=== PATIENT | female | born 1975 | race American Indian/Alaskan Native ===

== ENCOUNTER 2019-04-24 17:42 | Emergency (ER) | payer MEDICAID, SELFPAY ==
--- NOTE | 2019-04-24 18:07 | PC.NURSE ---
called for patient to triage no answer
[2019-04-24 18:46] VITALS: BP 134/74; PULSE 91; RESP 16; TEMP 36.4; O2SAT 100; BMI 23.0
--- NOTE | 2019-04-24 18:56 | DI.RAD.S_ITS ---
PROCEDURE: XR RIBS LT MIN 3V W CXR1V INDICATIONS: fall rib pain TECHNIQUE: 2 views of the left ribs were acquired, along with a single view chest. COMPARISON: None. FINDINGS: Surgical changes and devices: Surgical clips in the gallbladder fossa. Left breast biopsy clip. Bones and chest wall: Mildly displaced left lateral sixth and seventh rib fractures. No suspicious bony lesions. Overlying soft tissues appear unremarkable. Lungs and pleura: No pleural effusions or pneumothorax. Lungs appear clear. Mediastinum: Mediastinal contours appear normal. Heart size is normal. IMPRESSION: 1. Mildly displaced left sixth and seventh lateral rib fractures. 2. No evidence of underlying chest trauma. Dictated by: Nyasia Anders M.D. on 04/24/2019 at 20:05 Approved by: Nyasia Anders M.D. on 04/24/2019 at 20:08
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
[2019-04-24] MEDS: HYDROCODONE/ACET 5/325 PREPACK 1 BOTTLE MISC (20:36)
[2019-04-24] MEDS: KETOROLAC 60 MG/2 ML VIAL 30 MG IM (20:36)
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
[2019-04-24 21:00] VITALS: BP 121/80; PULSE 92; RESP 18; O2SAT 98
== END 2019-04-24 21:03 | disposition home or self-care (01) ==
PROVIDERS: Emergency Provider Nurse Practitioner
DX: S22.42XA Multiple fractures of ribs, left side, initial encounter for closed fracture (principal); W18.30XA Fall on same level, unspecified, initial encounter
CPT/HCPCS: 71101; 96372; 99282; 99283; J1885

== ENCOUNTER 2019-08-16 13:24 | Emergency (ER) | payer MEDICAID, SELFPAY ==
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
[2019-08-16 13:40] VITALS: BP 124/74; PULSE 92; RESP 16; TEMP 36.6; O2SAT 98; BMI 21.2
--- NOTE | 2019-08-16 13:47 | PC.NURSE ---
Patient requests a shower. Informed her that as long as she cooperates we can do so. After that pt cooperates and answers questions. Helped pt to shower and provided her with supplies and clothing.
[2019-08-16 18:29] VITALS: BP 114/74; PULSE 88; RESP 15; O2SAT 99
[2019-08-16] MEDS: ONDANSETRON 4 MG ODT PO (18:34)
[2019-08-17 01:28] VITALS: BP 118/71; PULSE 80; RESP 18; O2SAT 97
[2019-08-17 07:32] VITALS: BP 127/67; PULSE 97; RESP 12; O2SAT 97
[2019-08-17] MEDS: ACETAMINOPHEN 325 MG TABLET 650 MG PO (08:27)
== END 2019-08-17 08:30 | disposition home or self-care (01) ==
PROVIDERS: Emergency Provider Emergency Medicine
DX: F10.929 Alcohol use, unspecified with intoxication, unspecified (principal)
CPT/HCPCS: 99283

== ENCOUNTER 2020-08-01 18:37 | Emergency (ER) | payer MEDICAID, SELFPAY ==
[2020-08-01 18:42] VITALS: BP 141/71; PULSE 95; RESP 14; TEMP 36.2; O2SAT 97; BMI 23.0
--- NOTE | 2020-08-01 18:49 | DI.RAD.S_ITS ---
PROCEDURE: XR HAND RT MIN 3V INDICATIONS: hand injury yesterdaY TECHNIQUE: 3 views of the hand(s) acquired. COMPARISON: None. FINDINGS: Bones: Mildly displaced and angulated comminuted fracture of the proximal aspect of the proximal phalanx of the 3rd digit. There is a possible underlying lucent focus within the proximal phalanx measuring 12 mm. Soft tissues: No suspicious soft tissue calcifications. IMPRESSION: 1. 3rd digit fracture, possibly pathological. Dictated by: Sam Parra M.D. on 08/01/2020 at 19:03 Approved by: Sam Parra M.D. on 08/01/2020 at 19:04
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
[2020-08-01] MEDS: LIDO 1%/SOD BICARB 8.4% (10ML) 10 ML SYRINGE INJ (19:40)
[2020-08-01 20:28] VITALS: BP 120/81; PULSE 82; RESP 12; O2SAT 96
== END 2020-08-01 20:30 | disposition home or self-care (01) ==
PROVIDERS: Emergency Provider Emergency Medicine
DX: S62.602A Fracture of unspecified phalanx of right middle finger, initial encounter for closed fracture (principal); W19.XXXA Unspecified fall, initial encounter
CPT/HCPCS: 26725; 29130; 64450; 73130; 99281; 99284

== ENCOUNTER 2020-08-29 08:58 | Day surgery (SDC) | payer MEDICAID, SELFPAY ==
[2020-08-29] VITALS (8 sets, daily range): BP systolic 101–124; BP diastolic 66–77; PULSE 76–110; RESP 12–18; TEMP 36.3–37.3; O2SAT 97–100; BMI 23.5
--- NOTE | 2020-08-29 | PATH_ITS ---
[facility] Accession Number: [id number] . 01 Material submitted: . finger - RIGHT MIDDLE FINGER PROXIMAL PHALANX BONY TUMOR . 01 Clinical history: . RIGHT MIDDLE FINGER EXCISION . 01 Diagnosis: Right Middle Finger Proximal Phalanx, Excision: Benign chondro-osseous lesion with degenerative changes and reactive fibrosis; see comment. MRV 09/05/2020 1322 Local . 01 Comment: The clinical note is reviewed. Sections demonstrate histoloic features compatible with reactive changes/exostosis/benign osteochondromatous proliferation. 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 Significant cytologic atypia or infiltration into bony trabecula is not identified. Correlation with clinical and radiographic features is recommended. . This case has been reviewed by Dr. Shannan Delgado. . 01 Electronically signed: . Charlie Mckenzie MD, Dermatopathologist NPI- [id number] . 01 Gross description: . RIGHT MIDDLE FINGER PROXIMAL PHALANX BONY TUMOR: Received in formalin are multiple fragment(s) of lucas, hard tissue measuring 2.7 x 2.4 x 0.6 cm in aggregate submitted entirely in 1 cassette(s) /QBJ 08/31/2020 0956 Local . 01 Pathologist provided ICD-10: M89.8X4 . 01 CPT . [id number] Performed at: [address] [facility], [place], [place] [id number] MD Thang Delatorre MD Phone: [phone]
[2020-08-29] MEDS: LACTATED RINGERS 1,000 ML 42 ML IV (10:09)
[2020-08-29] MEDS: CEFAZOLIN 2 GM/100 ML FROZ.PIGGY IV (10:12)
[2020-08-29] MEDS: BUPIVACAINE 0.5% W/ EPI (PF) 30 ML VIAL INJ (10:58)
--- NOTE | 2020-08-29 12:06 | P.OP_ITS ---
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 No sign of any intra-articular extension. With some erosion of the cortex to the proximal aspect of the proximal phalanx. Closure Type: primary Specimen(s): other (Bony tumor from proximal phalanx sent for pathology) Estimated Blood Loss (mL): 10 Blood products transfused: none Tourniquet time (min): 80 Procedure in detail: On date of service, patient was met in the holding area where his operative site was signed and witnessed by the OR staff. The surgeries once again discussed with the patient in remaining questions or concerns he had were answered fully. Patient was taken back to the operating theater placed on the operating table in a supine position. Great care was taken to ensure that all bony prominences were appropriately padded. Well- padded tourniquet was placed up along the upper extremity. Time-out was performed verifying patient's name, procedure, and operative site. The upper extremity was prepped and draped in the normal sterile fashion. Esmarch was used to exsanguinate the limb the tourniquet was turned up to 250 mm of mercury. Fifteen blade was used to incise through skin and fascial tissue centered over the 3rd proximal phalanx. Deep knife was used to continue the sharp dissection until the proximal phalanx as well as the distal aspect of the metacarpal was visualized. The extensor tendon was split midline. Once we had good visualization of the fracture, curette was used to debride out to the bony cyst. The material removed was sent to pathology. Correct was used to remove all that material leaving a hollow shell with a bony cyst was. Extended a little bit distally until we reached normal marrow tissue. C-arm was used to verify the extent of our excision of the bony mass. The dorsal cortex was definitely very thin over the area of the bony cyst/tumor. Once we felt we removed all of the bony tumor than this area was copiously irrigated. Then next, this area was then packed with bone graft filling up the empty shell where the tumor used to be. Once this area was completely filled with bone graft we then turned our attention to the fixation. This plate was placed spanning the area over the cyst. Initially a screw was placed most distally and most proxi harish. C-arm was used to verify positioning as well as screw length. Once we were satisfied with this the remaining holes were drilled and screws were placed providing good fixation distally to the cystic area. Good fixation with 1 screw hole proximally to the cystic area due to how close the cyst was to the articular surface. C-arm was brought in again to verify reduction as well as plate positioning and screw lengths. Final x-rays were obtained. Wound was copiously irrigated and then closed in layered fashion. The hand was then cleaned, dried, and dressed. Patient was placed into a splint and taken to the PACU in stable condition. Complications: none Post-operative Condition: stable Disposition: PACU Plan for aftercare: Patient's finger be immobilized for the next few days. Hand therapy can then make her a removable brace that she can take off and work on range of motion exercises.
[2020-08-29] MEDS: OXYCODONE/ACETAMINOPHEN 5/325 TABLET 1 TAB PO (12:27)
== END 2020-08-29 13:07 | disposition home or self-care (01) ==
PROVIDERS: Referring Provider Orthopaedic Surgery; Visit Provider Orthopaedic Surgery
PROC: (CPT 26746; principal; 2020-08-29 10:15)
DX: M84.444A Pathological fracture, right finger(s), initial encounter for fracture (principal); F17.210 Nicotine dependence, cigarettes, uncomplicated; W03.XXXA Other fall on same level due to collision with another person, initial encounter; M89.8X4 Other specified disorders of bone, hand
CPT/HCPCS: 26746; 26260; 81025; J0690; J1100; J1885; J2250; J2405; J2704; J3010

== ENCOUNTER → 2021-09-26 19:43 | Outpatient (CLI) | payer MEDICAID, SELFPAY ==
--- NOTE | 2021-09-26 20:19 | DI.RAD.S_ITS ---
PROCEDURE: XR FOOT RT MIN 3V INDICATIONS: metatarsalgia, right foot TECHNIQUE: 3 views of the foot were acquired. COMPARISON: None. FINDINGS: Bones: No acute fractures or dislocations. Mild degenerative changes of the right 1st metatarsophalangeal joint with suspected hallux valgus angulation and bunion formation. However, there appears to be small subchondral lucencies involving the head of the 1st metatarsal and base of the 1st toe proximal phalanx. Findings may represent an inflammatory arthropathy such as gout. No suspicious bony lesions. Postsurgical changes of the medial malleolus. No evidence for hardware complication. Soft tissues: No tibiotalar joint effusion. Achilles tendon appears normal. IMPRESSION: 1. Right foot without acute fracture or dislocation. 2. Degenerative changes of the right 1st metatarsophalangeal joint. There is overlying soft tissue prominence which may represent bunion formation as there is suspected mild hallux angulation of the great toe. However, there are small subchondral lucencies involving the base of the right 1st toe proximal phalanx as well as the head of the 1st metatarsal. These findings in combination with soft tissue prominence may represent an inflammatory arthropathy such as gout. Recommend clinical correlation. Dictated by: Ruben Simmons M.D. on 09/27/2021 at 0:42 Approved by: Ruben Simmons M.D. on 09/27/2021 at 0:46
== END ==
PROVIDERS: PCP Family Medicine; Referring Provider Family Medicine; Visit Provider Family Medicine
DX: M77.41 Metatarsalgia, right foot (principal)
CPT/HCPCS: 73630

== ENCOUNTER 2022-03-08 00:31 | Emergency (ER) | payer OTHER, MEDICAID, SELFPAY ==
[2022-03-08 00:40] VITALS: BP 149/66; PULSE 86; RESP 18; TEMP 36.8; O2SAT 98; BMI 23.1
[2022-03-08] MEDS: TET,DIPH,PERTUSS(ACELL),VAC/PF 0.5 ML SYRINGE IM (01:10)
== END 2022-03-08 01:25 | disposition left against medical advice (07) ==
PROVIDERS: Emergency Provider Emergency Medicine; PCP Nurse Practitioner Family
DX: T22.00XA Burn of unspecified degree of shoulder and upper limb, except wrist and hand, unspecified site, initial encounter (principal); Z23 Encounter for immunization
CPT/HCPCS: 90471; 99283; 90715

== ENCOUNTER 2022-10-18 00:09 | Emergency (ER) | payer OTHER, MEDICAID, SELFPAY ==
[2022-10-18] VITALS (10 sets, daily range): BP systolic 120–159; BP diastolic 63–98; PULSE 80–108; RESP 11–50; TEMP 36.6; O2SAT 96–99; BMI 23.0
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
--- NOTE | 2022-10-18 00:14 | DI.RAD.S_ITS ---
PROCEDURE: XR ELBOW LT MIN 3V INDICATIONS: pain, swelling, ecchymosis TECHNIQUE: 3 views of the elbow were acquired. COMPARISON: None. FINDINGS: Bones: No fractures or dislocations. No suspicious bony lesions. Soft tissues: No elbow joint effusion. No suspicious soft tissue calcifications. IMPRESSION: No trauma found. Dictated by: Jesus Curtis M.D. on 10/18/2022 at 1:38 Approved by: Jesus Curtis M.D. on 10/18/2022 at 1:38
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
[2022-10-18] MEDS: TET,DIPH,PERTUSS(ACELL),VAC/PF 0.5 ML SYRINGE IM (00:23)
[2022-10-18] MEDS: SODIUM CHLORIDE 0.9% 1,000 ML 1000 ML IV (00:24)
[2022-10-18 00:30] LABS: Alanine Aminotransferase 13 IU/L (<35); Albumin 4.3 g/dL (3.5-5.0); Albumin Globulin Ratio 1.7 (1.0-2.8); Alkaline Phosphatase 73 U/L (38-126); Aspartate Aminotransferase 49 IU/L (14-36); Bilirubin Total 0.2 mg/dL (0.2-1.3); Blood Urea Nitrogen 12 mg/dL (7-17); Calcium 8.5 mg/dL (8.4-10.2); Carbon Dioxide 25 mmol/L (22-32); Chloride 105 mmol/L (98-107); Estimated Glomerular Filt Rate > 60 mL/min (>60); Globulin 2.5 g/dL (1.7-4.1); Glucose 101 mg/dL (70-100); HEMOLYSIS < 15 (0-50); Lipase 302 U/L (23-300); Magnesium 2.1 mg/dL (1.6-2.3); Potassium 4.5 mmol/L (3.4-5.1); Sodium 140 mmol/L (137-145); Total Protein 6.8 g/dL (6.3-8.2)
[2022-10-18 00:40] LABS: Add Manual Diff / Slide Review NO; Basophils Absolute Auto 100 /uL (0-100); Basophils Percent Auto 0.8 % (0-2); Eosinophils Absolute Auto 100 /uL (0-450); Eosinophils Percent Auto 1.6 % (2-4); Hematocrit 38.8 % (36-46); Hemoglobin 13.1 g/dL (12.0-16.0); Lymphocytes Absolute Auto 1600 /uL (1100-4500); Lymphocytes Percent Auto 23.7 % (25-40); Mean Corpuscular HGB Conc 33.6 % (30-36); Mean Corpuscular Hemoglobin 32.7 PG (26-34); Mean Corpuscular Volume 97.4 fL (80-100); Monocytes Absolute Auto 500 /uL (0-900); Monocytes Percent Auto 6.9 % (3-14); Neutrophils Absolute Auto 4600 /uL (1500-7000); Platelet Count 351 X10^3/uL (150-400); Red Blood Cell Count 3.99 X10^6/uL (4.0-5.2); Red Cell Distribution Width 13.3 % (11.6-14.8); White Blood Cell Count 6.9 X10^3/uL (4.5-11.0)
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
[2022-10-18 01:51] LABS: Ethanol (ETOH) 228 mg/dL
[2022-10-18] MEDS: ACETAMINOPHEN 325 MG TABLET 650 MG PO (02:27)
--- NOTE | 2022-10-18 02:28 | PC.NURSE ---
removed C-collar after C-spine cleared. Patient cleared for discharge but does not have available housing or ride in area. Patient ambulatory down hallway to bathroom, then moved to room 12 to allow to rest while awaiting later time to pursue ride home. Patient no longer on residential monitor, she is drinking fluids and given a snack.
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
== END 2022-10-18 10:00 | disposition home or self-care (01) ==
PROVIDERS: Emergency Provider Emergency Medicine; PCP Nurse Practitioner Family
DX: S00.03XA Contusion of scalp, initial encounter (principal); S53.402A Unspecified sprain of left elbow, initial encounter; Y04.2XXA Assault by strike against or bumped into by another person, initial encounter; Z23 Encounter for immunization
CPT/HCPCS: 70450; 70486; 71045; 72125; 72170; 73080; 80053; 80320; 83690; 83735; 85025; 90471; 96360; 99284; 90715

== ENCOUNTER 2023-01-29 20:01 | Emergency (ER) | payer OTHER, MEDICAID, SELFPAY ==
--- NOTE | 2023-01-29 20:07 | DI.CT.S_ITS ---
PROCEDURE: CT HEAD/BRAIN WO CON INDICATIONS: fall with head injury TECHNIQUE: Noncontrast 4.5 mm thick angled axial sections acquired from the foramen magnum to the vertex, with coronal and sagittal reformats. For radiation dose reduction, the following was used: automated exposure control, adjustment of mA and/or kV according to patient size. COMPARISON: [facility], CT, CT HEAD/BRAIN WO CON, 10/18/2022, 0:28. FINDINGS: Image quality: Excellent. CSF spaces: Basal cisterns are patent. No extra-axial fluid collections. Ventricles are normal in size and shape. Brain: No intracranial hemorrhage, mass, or mass effect. Garland-white matter interface appears preserved. Skull and face: Calvarium and visualized facial bones are intact, without suspicious lesions. Sinuses: Visualized sinuses and mastoids are clear. IMPRESSION: 1. No acute intracranial abnormality. Dictated by: Thang Kulkarni M.D. on 01/29/2023 at 21:14 Approved by: Thang Kulkarni M.D. on 01/29/2023 at 21:15
--- NOTE | 2023-01-29 20:07 | DI.CT.S_ITS ---
P the ROCEDURE: CT CERVICAL SPINE WO CON INDICATIONS: fall with head injury TECHNIQUE: Noncontrast 3 mm thick sections acquired from the skull base to the T4 level. Sagittal and coronal reformats were then constructed. For radiation dose reduction, the following was used: automated exposure control, adjustment of mA and/or kV according to patient size. COMPARISON: [facility], CT, CT CERVICAL SPINE WO CON, 10/18/2022, 0:28. FINDINGS: Image quality: Excellent. Bones: No fractures or subluxation. There is straightening of the cervical lordosis. Visualized superior ribs are intact. Soft tissues: Prevertebral soft tissues are normal in thickness. No paravertebral hematomas. No apical pneumothoraces. IMPRESSION: 1. No fracture or subluxation. Dictated by: Thang Kulkarni M.D. on 01/29/2023 at 21:13 Approved by: Thang Kulkarni M.D. on 01/29/2023 at 21:14
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
[2023-01-29 20:11] VITALS: BP 112/73; PULSE 110; RESP 18; TEMP 36.6; O2SAT 99; BMI 23.0
[2023-01-29 20:25] VITALS: BP 118/74; PULSE 104; RESP 18; O2SAT 98
[2023-01-29] MEDS: TET,DIPH,PERTUSS(ACELL),VAC/PF 0.5 ML SYRINGE IM (20:31)
[2023-01-29 20:42] VITALS: BP 117/74; PULSE 102; RESP 18; O2SAT 100
--- NOTE | 2023-01-29 21:01 | PC.NURSE ---
Pt alert, oriented x 4. Became verbally abusive to staff stating LET ME OUT I'm NOT waiting here all fucking night. Instructed to return to room, verbally reassured.
--- NOTE | 2023-01-29 21:03 | PC.NURSE ---
She is alert and oriented to time,place,day and person and situation.she is verbally abusive,swearing and refuses bronwyn let me take her vital signs.Her speech is clear and her gait is steady.She removed her hard c collar that I placed on arrival here.
--- NOTE | 2023-01-29 21:09 | PC.NURSE ---
She refused to let me come into her room,I notified DERIAN Oconnor and transmitter engineer in charge Kate.
--- NOTE | 2023-01-29 21:41 | PC.NURSE ---
Pt requesting ferry pass back. Told that we are unable to give ferry pass as she has no indication for such. Pt states that I am not believable and I am the worst.
[2023-01-29] MEDS: KETOROLAC 30 MG/ML VIAL 15 MG IV (21:45)
== END 2023-01-29 22:02 | disposition home or self-care (01) ==
PROVIDERS: Emergency Provider Emergency Medicine; PCP Nurse Practitioner Family
DX: S01.01XA Laceration without foreign body of scalp, initial encounter (principal); W17.89XA Other fall from one level to another, initial encounter; Z23 Encounter for immunization
CPT/HCPCS: 12001; 70450; 72125; 90471; 96374; 99284; 99285; 90715; J1885

== ENCOUNTER 2023-02-20 19:43 | Emergency (ER) | payer OTHER, MEDICAID, SELFPAY ==
[2023-02-20 19:46] VITALS: BP 120/60; PULSE 97; RESP 20; TEMP 36.4; O2SAT 98; BMI 23.0
--- NOTE | 2023-02-20 19:54 | PC.NURSE ---
Patient declined to answer any further questions on the suicide risk score stating i don't think you guys are going to do anything else for me besides get these sheri out so stop asking questions.
--- NOTE | 2023-02-20 20:28 | PC.NURSE ---
Per provider, okay'd to removal sheri. Removed 2 sheri without difficulty. Incision well healed, no s/sx of infection present. Patient requested to keep sheri, educated patient that they are sharps and need to be disposed of properly. Patient acknowledged.
--- NOTE | 2023-02-20 20:29 | ED.RECABL ---
HPI - Recheck/Abnormal Lab/Rx General Chief Complaint: Recheck/Abnormal Lab/Rx Stated Complaint: Abdelrahman in head, Need removed Time Seen by Provider: 02/20/23 20:26 Source: patient Mode of arrival: Ambulatory History of Present Illness HPI narrative: 47-year-old female here to have abdelrahman removed from scalp. Related Data Previous Rx's Medication Instructions Recorded oxycodone-acetaminophen 5 mg-325 2 tab PO Q4-6H PRN pain #60 tabs 08/29/ mg tablet (Percocet) cyclobenzaprine 10 mg tablet 10 mg PO TID PRN muscle spasm #10 10/18/22 tabs hydrocodone 5 mg-acetaminophen 325 1 tab PO Q6H PRN pain #10 tabs 10/18/22 mg tablet ondansetron 4 mg disintegrating 4 mg PO Q6HR PRN nausea and 10/18/22 tablet vomiting #10 tabs Allergies Allergy/AdvReac Type Severity Reaction Status Date / Time No Known Drug Allergies Allergy Verified 03/08/22 00:39 Review of Systems Integumentary/Breasts Skin/Breast: Reports system reviewed and no additional complaints, except as documented Patient History Medical History Depression HX: benign breast biopsy No significant medical problems Surgical History Previous section S/P cholecystectomy Social History household members: friend(s) Smoking Status: Current every day smoker Smoking Status: Current every day smoker tobacco type: vaping alcohol intake frequency: a few times a week Substance Use Type: marijuana Exam Initial Vital Signs Initial Vital Signs: Vital Signs Temperature 97.5 F L 02/20/23 19:46 Pulse Rate 97 H 02/20/23 19:46 Respiratory Rate 20 02/20/23 19:46 Blood Pressure 120/60 02/20/23 19:46 Pulse Oximetry 98 02/20/23 19:46 Oxygen Delivery Method Room Air 02/20/23 19:46 HENTN HENTN Other: Head wound appears well. No signs of infection Skin Other: Scalp wound appears well. No signs of infection Course Vital Signs Vital signs: Vital Signs - 8 hr 02/20/23 19:46 Temperature 97.5 F L Pulse Rate 97 H Respiratory Rate 20 Blood Pressure 120/60 Pulse Oximetry 98 Oxygen Delivery Method Room Air MDM - Recheck/Abnormal Lab/Rx MDM Narrative Medical decision making narrative: Abdelrahman were removed without issue. There are no signs of infection. Patient was given care instructions and return precautions. She expressed understanding and agreement. Discharge Plan Departure Patient Disposition: Home Clinical Impression: Encounter for staple removal Activity Restrictions/Additional Instructions: I do recommend that you were careful with brushing your hair for the next couple days however this should improve very quickly. Follow-up with your primary doctor as needed. Prescriptions: No Action oxycodone-acetaminophen [Percocet] 5-325 mg tablet 2 tab PO Q4-6H PRN (Reason: pain) Qty: 60 0RF cyclobenzaprine 10 mg tablet 10 mg PO TID PRN (Reason: muscle spasm) Qty: 10 0RF hydrocodone-acetaminophen 5-325 mg tablet 1 tab PO Q6H PRN (Reason: pain) Qty: 10 0RF ondansetron 4 mg tablet,disintegrating 4 mg PO Q6HR PRN (Reason: nausea and vomiting) Qty: 10 0RF Referrals: Shana Vences ARNP [Primary Care Provider] - Stand Alone Forms: Patient Portal/API
== END 2023-02-20 20:31 | disposition home or self-care (01) ==
PROVIDERS: Emergency Provider Emergency Medicine; PCP Nurse Practitioner Family
DX: Z48.02 Encounter for removal of sutures (principal)
CPT/HCPCS: 99281

== ENCOUNTER 2023-04-07 12:06 | Emergency (ER) | payer OTHER, MEDICAID, SELFPAY ==
[2023-04-07 12:09] VITALS: BP 138/74; PULSE 90; RESP 20; TEMP 36.8; O2SAT 100; BMI 23.0
--- NOTE | 2023-04-07 12:40 | DI.RAD.S_ITS ---
PROCEDURE: XR FINGER LT MIN 2V INDICATIONS: pain after swelling/ring removal TECHNIQUE: AP hand, 2 views of the 4th finger(s) acquired. COMPARISON: None. FINDINGS: Bones: No fractures or dislocations. No suspicious bony lesions. Soft tissues: No suspicious soft tissue calcifications. IMPRESSION: No visualized acute fracture or dislocation. However, if clinical concern and/or pain persist, short interval imaging followup in 7-10 days is recommended, as occult injury cannot be definitively excluded. Dictated by: Ammy Michaels M.D. on 04/07/2023 at 13:16 Approved by: Ammy Michaels M.D. on 04/07/2023 at 13:17
--- NOTE | 2023-04-07 12:43 | PC.NURSE ---
This RN used ring cutter to remove two rings from pt's L 4th finger. Skin is intact and finger is swollen distal to where the rings were. Pt tolerated procedure well.
[2023-04-07] MEDS: ACETAMINOPHEN 325 MG TABLET 650 MG PO (13:00)
[2023-04-07] MEDS: IBUPROFEN 400 MG TABLET 800 MG PO (13:00)
[2023-04-07 13:04] VITALS: PULSE 78
--- NOTE | 2023-04-07 13:27 | ED.EXTPRO ---
HPI - Extremity Problem <Marialuisa Moulton PA-C - Last Filed: 04/07/23 13:32> General Chief complaint: Extremity Injury, Upper Stated complaint: finger onleft hand swelling/ rings stuck painfull Time Seen by Provider: 04/07/23 12:36 Source: patient Mode of arrival: Ambulatory History of Present Illness HPI Narrative: Patient is a 48-year-old female who presents with swelling of her left 4th finger. Her rings are stuck. She did not injure the finger but was carrying some heavy luggage and thinks the finger got swollen. When she tried to remove the rings, she was not able to. She tried using soap and lotion to get the rings off but they would not come off; her friend tried pulling on them which caused further swelling and pain around the PIP joint. Related Data Previous Rx's Medication Instructions Recorded oxycodone-acetaminophen 5 mg-325 2 tab PO Q4-6H PRN pain #60 tabs /18/ mg tablet (Percocet) cyclobenzaprine 10 mg tablet 10 mg PO TID PRN muscle spasm #10 10/18/22 tabs hydrocodone 5 mg-acetaminophen 325 1 tab PO Q6H PRN pain #10 tabs 10/18/22 mg tablet ondansetron 4 mg disintegrating 4 mg PO Q6HR PRN nausea and 10/18/22 tablet vomiting #10 tabs Allergies Allergy/AdvReac Type Severity Reaction Status Date / Time No Known Drug Allergies Allergy Verified 04/07/23 12:42 Review of Systems <Marialuisa Moulton PA-C - Last Filed: 04/07/23 13:32> Review of Systems ROS Unobtainable: All systems reviewed & are unremarkable except as noted in HPI and below Patient History <Marialuisa Moulton PA-C - Last Filed: 04/07/23 13:32> Medical History HX: benign breast biopsy Depression No significant medical problems Surgical History Previous section S/P cholecystectomy Social History household members: friend(s) Smoking Status: Current every day smoker Smoking Status: Current every day smoker tobacco type: vaping alcohol intake frequency: a few times a week Substance Use Type: marijuana Exam <Marialuisa Moulton PA-C - Last Filed: 04/07/23 13:32> Narrative Exam Narrative: GENERAL: 48 year old patient appears stated age. Well-developed patient, in no distress. NEURO: AOx3. HEAD: Atraumatic. Normocephalic. EYES: Pupils equal round and reactive. Extraocular motions intact. No scleral icterus. No injection or drainage. ENT: Nose without bleeding or purulent drainage. Airway patent. RESPIRATORY: No distress. EXTREMITIES: Mild edema of the left 4th DIP joint with tenderness to palpation, mildly decreased range of motion due to swelling and pain. SKIN: Macerated skin under the rings Initial Vital Signs Initial Vital Signs: Vital Signs Temperature 98.3 F 04/07/23 12:09 Pulse Rate 90 04/07/23 12:09 Respiratory Rate 20 04/07/23 12:09 Blood Pressure 138/74 04/07/23 12:09 Pulse Oximetry 100 04/07/23 12:09 Oxygen Delivery Method Room Air 04/07/23 12:09 <Herminia Rose MD - Last Filed: 04/07/23 19:16> Initial Vital Signs Initial Vital Signs: Vital Signs Temperature 98.3 F 04/07/23 12:09 Pulse Rate 90 04/07/23 12:09 Respiratory Rate 20 04/07/23 12:09 Blood Pressure 138/74 04/07/23 12:09 Pulse Oximetry 100 04/07/23 12:09 Oxygen Delivery Method Room Air 04/07/23 12:09 Course <Marialuisa Moulton PA-C - Last Filed: 04/07/23 13:32> Orders Ordered: ED Orders 04/07/23 12:40 XR finger LT min 2V Stat Discontinued Medications Acetaminophen (Acetaminophen 325 Mg Tablet) 650 mg PO NOW ONE Stop: 04/07/23 12:40 Last Admin: 04/07/23 13:00 Dose: 650 mg Documented By: SAMANTHA Ibuprofen (Ibuprofen 400 Mg Tablet) 800 mg PO NOW ONE Stop: 04/07/23 12:40 Last Admin: 04/07/23 13:00 Dose: 800 mg Documented By: SAMANTHA Vital Signs Vital signs: Vital Signs - 8 hr 04/07/23 12:09 04/07/23 13:04 Temperature 98.3 F Pulse Rate 90 Pulse Rate [Left Radial] 78 Respiratory Rate 20 Blood Pressure 138/74 Pulse Oximetry 100 Oxygen Delivery Method Room Air <Herminia Rose MD - Last Filed: 04/07/23 19:16> Orders Ordered: ED Orders 04/07/23 12:40 XR finger LT min 2V Stat Discontinued Medications Acetaminophen (Acetaminophen 325 Mg Tablet) 650 mg PO NOW ONE Stop: 04/07/23 12:40 Last Admin: 04/07/23 13:00 Dose: 650 mg Documented By: SAMANTHA Ibuprofen (Ibuprofen 400 Mg Tablet) 800 mg PO NOW ONE Stop: 04/07/23 12:40 Last Admin: 04/07/23 13:00 Dose: 800 mg Documented By: SAMANTHA Vital Signs Vital signs: Vital Signs - 8 hr 04/07/23 12:09 04/07/23 13:04 Temperature 98.3 F Pulse Rate 90 Pulse Rate [Left Radial] 78 Respiratory Rate 20 Blood Pressure 138/74 Pulse Oximetry 100 Oxygen Delivery Method Room Air MDM - Extremity (Nontraumatic) <Marialuisa Moulton PA-C - Last Filed: 04/07/23 13:32> Imaging Data Extremity x-ray #1: Radiologist's Impression: PROCEDURE: XR FINGER LT MIN 2V INDICATIONS: pain after swelling/ring removal TECHNIQUE: AP hand, 2 views of the 4th finger(s) acquired. COMPARISON: None. FINDINGS: Bones: No fractures or dislocations. No suspicious bony lesions. Soft tissues: No suspicious soft tissue calcifications. IMPRESSION: No visualized acute fracture or dislocation. However, if clinical concern and/or pain persist, short interval imaging followup in 7-10 days is recommended, as occult injury cannot be definitively excluded. Dictated by: Ammy Michaels M.D. on 04/07/2023 at 13:16 Approved by: Ammy Michaels M.D. on 04/07/2023 at 13:17 MDM Narrative Medical decision making narrative: Multiple etiologies for patient's symptoms considered including, but not limited to: Fracture, dislocation, soft tissue injury Patient was significant pain over her PIP joint after attempting to remove her rings. Rings removed in the emergency room with macerated skin underlying them. There is no fracture or dislocation on x-ray. Suspect soft tissue swelling and pain secondary to the trauma of trying to remove the rings. Advised patient to continue using ice, ibuprofen and rest until her fingers are no longer swollen and no longer painful. Patient's symptoms improved over duration of stay with above-stated therapies. Findings and discharge diagnosis discussed with patient/family followed by verbalization of understanding Return precautions discussed with patient/family whom verbalize understanding of diagnosis and plan Discharge Plan Departure Patient Disposition: Home Clinical Impression: Injury of Hand Instructions: How To Perform RICE (Rest, Ice, Compress, Elevate) Activity Restrictions/Additional Instructions: *You have been diagnosed with soft tissue swelling of the left 4th finger. There is no fracture on x-ray. I would advise continuing to use ice, rest, ibuprofen until the swelling resolves and the pain goes away. *What to do: *Please continue to take your regular medications as directed. [ ] New medication prescriptions sent to your pharmacy: [ ] [ ] New medication written as a paper prescription [x] No new medications given *Please follow up with your primary care provider in 2-3 days, call for an appointment. Let them know you were seen in the Emergency Department and that we ask that you be seen in follow up. We will electronically transmit a record of today's note if your PCP is in our system *If you do not have a primary care provider please contact the [facility] Resource line at [phone]. They will ask some questions about your medical history and help get you set up with a doctor in the community. *Return to Emergency Department if you should have any new, worsening or concerning symptoms, such as [fever greater than 101 F, shaking chills, worsening pain, persistent vomiting or other concerning symptoms]. Prescriptions: No Action oxycodone-acetaminophen [Percocet] 5-325 mg tablet 2 tab PO Q4-6H PRN (Reason: pain) Qty: 60 0RF cyclobenzaprine 10 mg tablet 10 mg PO TID PRN (Reason: muscle spasm) Qty: 10 0RF hydrocodone-acetaminophen 5-325 mg tablet 1 tab PO Q6H PRN (Reason: pain) Qty: 10 0RF ondansetron 4 mg tablet,disintegrating 4 mg PO Q6HR PRN (Reason: nausea and vomiting) Qty: 10 0RF Referrals: Shana Vences ARNP [Primary Care Provider] - Stand Alone Forms: Patient Portal/API ED Sign-out <Herminia Rose MD - Last Filed: 04/07/23 19:16> Cosign ED Attending Cosignature Attestation: I did not see this patient. I was available all times for consultation.
== END 2023-04-07 13:53 | disposition home or self-care (01) ==
PROVIDERS: Emergency Provider Physician Assistant; PCP Nurse Practitioner Family
DX: S69.92XA Unspecified injury of left wrist, hand and finger(s), initial encounter (principal); X58.XXXA Exposure to other specified factors, initial encounter
CPT/HCPCS: 73140; 99283

== ENCOUNTER 2023-11-06 16:44 | Emergency (ER) | payer OTHER, MEDICAID, SELFPAY ==
[2023-11-06 16:48] VITALS: BP 119/70; PULSE 90; RESP 18; TEMP 36.6; O2SAT 99; BMI 24.7
--- NOTE | 2023-11-06 16:51 | DI.RAD.S_ITS ---
PROCEDURE: XR ANKLE RT MIN 3V INDICATIONS: pain after injury TECHNIQUE: 3 views of the ankle were acquired. COMPARISON: [facility], CR, XR FOOT 3 VIEWS WEIGHT BEARING RIGHT, 08/31/2023, 15:17. FINDINGS: Bones: No fractures or dislocations. Medial malleolar screw fixation without evidence of hardware complication. Ankle mortise is normally aligned. No suspicious bony lesions. Soft tissues: No tibiotalar joint effusion. Achilles tendon appears normal. IMPRESSION: No acute osseous abnormality. Medial malleolar hardware without evidence of complication. If pain persists with conservative management, consider repeat x-ray in 10-14 days or cross-sectional imaging. Dictated by: Lee Quinn M.D. on 11/06/2023 at 16:06 Approved by: Lee Quinn M.D. on 11/06/2023 at 16:06
--- NOTE | 2023-11-06 17:21 | ED_ITS ---
HPI - Extremity Injury (Lower) General Chief Complaint: Extremity Injury, Lower Stated Complaint: rt ankle injury Time Seen by Provider: 11/06/23 17:16 Source: patient Mode of arrival: Wheelchair History of Present Illness HPI Narrative: Patient is a 48-year-old female presents today with right ankle pain and swelling. She reports that she twisted it a few days ago. She has a known bunion in her right foot she is also previously injured and broken that ankle and has a screw which is why she has a bunion. She has significant swelling and pain unable to bear weight. She tried taking pain meds which helps at night to let her sleep but she can not take them during the day. She took a bus over here she tried to help herself by getting an orthopedic shoe what it has not helping. No fever or chills. No other injury. Related Data Home Medications Medication Instructions Recorded Confirmed bupropion HCl 300 mg 24 hr tablet, 300 mg PO DAILY 11/06/23 11/06/23 extended release clonidine HCl 0.1 mg tablet 0.1 mg PO DAILY 11/06/23 11/06/23 mirtazapine 7.5 mg tablet 7.5 mg PO ONCE PM 11/06/23 11/06/23 naltrexone 50 mg tablet 50 mg PO DAILY 11/06/23 11/06/23 trazodone 50 mg tablet 50 mg PO ONCE PM 11/06/23 11/06/23 Previous Rx's Medication Instructions Recorded oxycodone-acetaminophen 5 mg-325 2 tab PO Q4-6H PRN pain #60 tabs 03//21 mg tablet (Percocet) cyclobenzaprine 10 mg tablet 10 mg PO TID PRN muscle spasm #10 10/18/22 tabs hydrocodone 5 mg-acetaminophen 325 1 tab PO Q6H PRN pain #10 tabs 10/18/22 mg tablet ondansetron 4 mg disintegrating 4 mg PO Q6HR PRN nausea and 10/18/22 tablet vomiting #10 tabs hydrocodone 5 mg-acetaminophen 325 1 tab PO Q6H PRN pain #10 tabs 11/06/23 mg tablet Allergies Allergy/AdvReac Type Severity Reaction Status Date / Time No Known Drug Allergies Allergy Verified 11/06/23 15:51 Patient History Medical History HX: benign breast biopsy Depression No significant medical problems Surgical History Previous section S/P cholecystectomy Social History household members: friend(s) Smoking Status: Current every day smoker Smoking Status: Current every day smoker tobacco type: vaping alcohol intake frequency: a few times a week Substance Use Type: marijuana Exam Initial Vital Signs Initial Vital Signs: Vital Signs Temperature 97.8 F 11/06/23 16:48 Pulse Rate 90 11/06/23 16:48 Respiratory Rate 18 11/06/23 16:48 Blood Pressure 119/70 11/06/23 16:48 Pulse Oximetry 99 11/06/23 16:48 Oxygen Delivery Method Room Air 11/06/23 16:48 GENERAL: Well-appearing, well-nourished and in no acute distress. CARDIOVASCULAR: peripheral pulses in tact, cap refill <2 sec RESPIRATORY: No respiratory distress, speaks in full sentences without difficulty EXTREMITIES: Normal range of motion, no clubbing or edema. Neurovascularly intact Right lower extremity scar noted right medial area there is some medial malleolar swelling. Distal pedal pulse intact foot is stable Achilles intact calf is soft NEUROLOGICAL: Cranial nerves II through XII grossly intact. Normal gait and speech. SKIN: Warm, dry, no petechiae, no rashes or lesions. Course Orders Ordered: ED Orders 11/06/23 16:51 XR ankle RT min 3V Stat Vital Signs Vital signs: Vital Signs - 8 hr 11/06/23 16:48 Temperature 97.8 F Pulse Rate 90 Respiratory Rate 18 Blood Pressure 119/70 Pulse Oximetry 99 Oxygen Delivery Method Room Air MDM - Extremity Injury (Lower) Imaging Data Extremity x-ray #1: Radiologist's Impression: PROCEDURE: XR ANKLE RT MIN 3V INDICATIONS: pain after injury TECHNIQUE: 3 views of the ankle were acquired. COMPARISON: [facility], , XR FOOT 3 VIEWS WEIGHT BEARING RIGHT, 08/31/2023, 15:17. FINDINGS: Bones: No fractures or dislocations. Medial malleolar screw fixation without evidence of hardware complication. Ankle mortise is normally aligned. No suspicious bony lesions. Soft tissues: No tibiotalar joint effusion. Achilles tendon appears normal. IMPRESSION: No acute osseous abnormality. Medial malleolar hardware without evidence of complication. If pain persists with conservative management, consider repeat x- ray in 10-14 days or cross-sectional imaging. Dictated by: Lee Quinn M.D. on 11/06/2023 at 16:06 [facility] Narrative Medical decision making narrative: Patient 48-year-old female tearful with worsening right ankle pain and swelling. She previously had surgery on the ankle she has problem with that at baseline. X-ray has been reviewed by myself and Radiology negative for fracture. She has a appointment with podiatry next week for bunion. She is given crutches and walking boot. Patient does look like she has previously been on naltrexone or Suboxone she reports that she does not have a history substance use been actually I have reviewed her prescription monitoring program she has not been prescribed narcotics for some time. She takes mirtazapine to help her sleep at night. Discharge Plan Departure Patient Disposition: Home Clinical Impression: Ankle sprain and strain Instructions: Ankle Sprain Activity Restrictions/Additional Instructions: *You have been diagnosed with ankle sprain *What to do: At this time elevate and ice as often as possible may begin weight-bearing as tolerated. Wear boot if needed use crutches as needed *Continue to take medications as directed Motrin 600 mg every 6 hours for [id number] pain [place] 1 tablet every 6 hours if needed for severe pain--> [facility] *Follow up with your primary care provider in 2-3 days or call [phone] See Podiatry as scheduled *Return to ER if you should have increasing pain redness [or] any new, worsening or concerning symptoms CONTROLLED SUBSTANCE DISCHARGE (Narcotoic/benzodiazepine/Flexeril/Phenergan) 1. You have been prescribed narcotic medications, it does have acetaminophen/Tylenol/paracetamol in it, DO NOT TAKE MORE THAN 4,00mg in 24 hours of Tylenol. TRAMADOL DOES NOT CONTAIN TYLENOL 2. Please understand that we cannot provide further refills of narcotics, benzodiazepines or controlled substances through the ED and her pain management will need to be through your provider. 3. While on these medications you cannot drive or operate heavy machinery. 4. You cannot sign legal documents or perform any duties such as this. 5. As long as you're taking opiate pain medications he should also be taking a stool softener such as Colace, Dulcolax, MiraLAX or prune juice, to help avoid constipation. Prescriptions: New hydrocodone-acetaminophen 5-325 mg tablet 1 tab PO Q6H PRN (Reason: pain) Qty: 10 0RF No Action mirtazapine 7.5 mg tablet 7.5 mg PO ONCE PM bupropion HCl 300 mg tablet extended release 24 hr 300 mg PO DAILY trazodone 50 mg tablet 50 mg PO ONCE PM clonidine HCl 0.1 mg tablet 0.1 mg PO DAILY naltrexone 50 mg tablet 50 mg PO DAILY oxycodone-acetaminophen [Percocet] 5-325 mg tablet 2 tab PO Q4-6H PRN (Reason: pain) Qty: 60 0RF cyclobenzaprine 10 mg tablet 10 mg PO TID PRN (Reason: muscle spasm) Qty: 10 0RF hydrocodone-acetaminophen 5-325 mg tablet 1 tab PO Q6H PRN (Reason: pain) Qty: 10 0RF ondansetron 4 mg tablet,disintegrating 4 mg PO Q6HR PRN (Reason: nausea and vomiting) Qty: 10 0RF Referrals: Shana Vences ARNP [Primary Care Provider] - Stand Alone Forms: Patient Portal/API
[2023-11-06] MEDS: HYDROCODONE/ACET 5/325 PREPACK 1 BOTTLE MISC (18:17)
== END 2023-11-06 18:30 | disposition home or self-care (01) ==
PROVIDERS: Emergency Provider Emergency Medicine; PCP Nurse Practitioner Family
DX: S93.401A Sprain of unspecified ligament of right ankle, initial encounter (principal); S96.911A Strain of unspecified muscle and tendon at ankle and foot level, right foot, initial encounter; X50.1XXA Overexertion from prolonged static or awkward postures, initial encounter
CPT/HCPCS: 73610; 99282; 99283

== ENCOUNTER 2024-10-29 15:39 | Emergency (ER) | payer OTHER, SELFPAY ==
[2024-10-29] VITALS (8 sets, daily range): BP systolic 140–167; BP diastolic 87–104; PULSE 82–127; RESP 14–16; TEMP 36.9; O2SAT 93–99; BMI 23.9
--- NOTE | 2024-10-29 15:49 | DI.RAD.S_ITS ---
PROCEDURE: XR CHEST 1V INDICATIONS: Overdose TECHNIQUE: One view of the chest was acquired. COMPARISON: [facility], CR, XR CHEST 1V, 10/18/2022, 0:21. FINDINGS: Surgical changes and devices: None. Lungs and pleura: Lungs are clear. No pleural effusions or pneumothorax. Mediastinum: Mediastinal contours appear normal. Heart size is normal. Bones and chest wall: No suspicious bony lesions. Overlying soft tissues appear unremarkable. IMPRESSION: No acute cardiopulmonary abnormality is seen. Dictated by: Hakan Saez M.D. on 10/29/2024 at 16:12 Approved by: Hakan Saez M.D. on 10/29/2024 at 16:12
--- NOTE | 2024-10-29 15:53 | ED_ITS ---
HPI - Overdose <Herminia Lopes, DO - Last Filed: 10/31/24 08:26> General Chief Complaint: Toxicology Problem Stated Complaint: OD Time Seen by Provider: 10/29/24 15:49 Source: patient, EMS, RN notes reviewed and old records reviewed Mode of arrival: EMS Limitations: no limitations History of Present Illness HPI Narrative: 49-year-old male history of depression uses methamphetamine and fentanyl presents for overdose. Patient was at what sounds like her apartment boyfriend saw her smoke fentanyl and methamphetamine in the bathroom, they called 911 law enforcement arrived had decreased respirations EMS arrived states she I responded to a sternal rub but I was still quite altered and was not felt safe to stay at home she was not initially cooperative and was ICA then placed in restraints. She did not receive Narcan. They state her mentation has improved as she was transported and she became cooperative in route. Patient ingested the methamphetamine and fentanyl about half an hour prior to arrival. She states she was to be on bupropion. She states she was depressive thoughts does not admit any thoughts of suicidal ideation or intent. Denies other medical problems does use tobacco daily, occasional alcohol. States she was has a little bit of a headache, denies any chest pain or shortness of breath. Was nauseated earlier but that is improved. Describes some chronic foot pain. No redness swelling or other changes. Denies any other symptoms. She was had foot and ankle surgery in the past. She was quite concerned about her home being left open and her personal belongings being stolen. Related Data Home Medications Medication Instructions Recorded Confirmed bupropion HCl 300 mg 24 hr tablet, 300 mg PO DAILY 11/06/23 11/06/23 extended release clonidine HCl 0.1 mg tablet 0.1 mg PO DAILY 11/06/23 11/06/23 mirtazapine 7.5 mg tablet 7.5 mg PO ONCE PM 11/06/23 11/06/23 naltrexone 50 mg tablet 50 mg PO DAILY 11/06/23 11/06/23 trazodone 50 mg tablet 50 mg PO ONCE PM 11/06/23 11/06/23 Previous Rx's Medication Instructions Recorded oxycodone-acetaminophen 5 mg-325 2 tab PO Q4-6H PRN pain #60 tabs 08/29/20 mg tablet (Percocet) cyclobenzaprine 10 mg tablet 10 mg PO TID PRN muscle spasm #10 10/18/22 tabs hydrocodone 5 mg-acetaminophen 325 1 tab PO Q6H PRN pain #10 tabs 10/18/22 mg tablet ondansetron 4 mg disintegrating 4 mg PO Q6HR PRN nausea and 10/18/22 tablet vomiting #10 tabs hydrocodone 5 mg-acetaminophen 325 1 tab PO Q6H PRN pain #10 tabs 11/05/ mg tablet Allergies Allergy/AdvReac Type Severity Reaction Status Date / Time No Known Drug Allergies Allergy Verified 10/29/24 15:51 Review of Systems <Herminia Lopes DO - Last Filed: 10/31/24 08:26> Review of Systems ROS Unobtainable: All systems reviewed & are unremarkable except as noted in HPI and below Patient History <Herminia Lopes DO - Last Filed: 10/31/24 08:26> Medical History HX: benign breast biopsy Depression No significant medical problems Surgical History Previous section S/P cholecystectomy Social History household members: friend(s) Smoking Status: Current every day smoker tobacco type: vaping alcohol intake frequency: a few times a week Exam <Herminia Lopes DO - Last Filed: 10/31/24 08:26> Narrative Exam Narrative: GENERAL: Alert and oriented x three, female in moderate distress. HEENT: Head normocephalic, atraumatic, EOMI, pupils reactive, face symmetric, moist mucous membranes NECK: Supple, full range of motion CARDIOVASCULAR: Tachycardic but regular rhythm without murmurs, rubs or gallops. No edema bilateral lower extremities. No JVD. RESPIRATORY: Breath sounds equal bilaterally, no wheezes rales or rhonchi. No tachypnea or accessory muscle use. Speaks in full sentences. ABDOMEN: Soft, nontender. Normoactive bowel sounds all 4 quadrants. No guarding or rebound, rigidity, no mass : No CVA tenderness EXTREMITIES: Normal range of motion, no clubbing or edema. Neurovascularly intact. Patient is nontender to the right foot, has healed incisions on the med medial malleoli and dorsum of the foot. NEUROLOGICAL: Cranial nerves II through XII grossly intact. Moving all extremities SKIN: Warm, dry, no petechiae, no rashes or lesions. Initial Vital Signs Initial Vital Signs: Vital Signs Temperature 98.4 F 10/29/24 15:40 Pulse Rate 127 H 10/29/24 15:40 Respiratory Rate 14 10/29/24 15:40 Blood Pressure 140/87 10/29/24 15:40 Pulse Oximetry 96 10/29/24 15:40 Oxygen Delivery Method Room Air 10/29/24 15:40 <Harriet Guerra DO - Last Filed: 10/30/24 02:11> Initial Vital Signs Initial Vital Signs: Vital Signs Temperature 98.4 F 10/29/24 15:40 Pulse Rate 127 H 10/29/24 15:40 Respiratory Rate 14 10/29/24 15:40 Blood Pressure 140/87 10/29/24 15:40 Pulse Oximetry 96 10/29/24 15:40 Oxygen Delivery Method Room Air 10/29/24 15:40 Course <Herminia Lopes, DO - Last Filed: 10/31/24 08:26> Orders Ordered: Discontinued Medications Sodium Chloride (Normal Saline 0.9%) 1,000 mls @ 1,000 mls/hr IV BOLUS ONE Stop: 10/29/24 18:13 Last Infusion: 10/29/24 18:39 Dose: Infused Documented By: Admin: 10/29/24 17:50 Dose: 1,000 mls/hr Documented By: REBECCA Naloxone HCl (Naloxone 4 Mg Nasal [place]) 4 mg MISC DIRECTED ONE Stop: 10/29/24 17:18 Last Admin: 10/29/24 18:33 Dose: 4 mg Documented By: REBECCA Ondansetron HCl (Ondansetron 4 Mg Odt) 4 mg SL NOW ONE Stop: 10/29/24 17:09 Last Admin: 10/29/24 17:11 Dose: 4 mg Documented By: REBECCA Vital Signs Vital signs: Vital Signs - 8 hr 10/29/24 18:30 10/29/24 18:30 Pulse Rate 98 H Respiratory Rate 16 Blood Pressure 147/87 H Pulse Oximetry 98 Oxygen Delivery Method Room Air <Harriet Guerra DO - Last Filed: 10/30/24 02:11> Orders Ordered: Discontinued Medications Sodium Chloride (Normal Saline 0.9%) 1,000 mls @ 1,000 mls/hr IV BOLUS ONE Stop: 10/29/24 18:13 Last Infusion: 10/29/24 18:39 Dose: Infused Documented By: Admin: 10/29/24 17:50 Dose: 1,000 mls/hr Documented By: BS Naloxone HCl (Naloxone 4 Mg Nasal [place]) 4 mg MISC DIRECTED ONE Stop: 10/29/24 17:18 Last Admin: 10/29/24 18:33 Dose: 4 mg Documented By: BS Ondansetron HCl (Ondansetron 4 Mg Odt) 4 mg SL NOW ONE Stop: 10/29/24 17:09 Last Admin: 10/29/24 17:11 Dose: 4 mg Documented By: REBECCA Vital Signs Vital signs: Vital Signs - 8 hr 10/29/24 18:30 10/29/24 18:30 Pulse Rate 98 H Respiratory Rate 16 Blood Pressure 147/87 H Pulse Oximetry 98 Oxygen Delivery Method Room Air MDM - Overdose <Herminia Lopes, - Last Filed: 10/31/24 08:26> Lab Data 10/29/24 17:23 10/29/24 17:23 Labs: Lab Results 10/29/24 Range/Units 17:23 WBC 10.4 (4.5-11.0) X10^3/uL RBC 4.01 (4.0-5.2) X10^6/uL Hgb 13.2 (12.0-16.0) g/dL Hct 37.9 (36-46) % MCV 94.5 (80-100) fL MCH 32.8 (26-34) PG MCHC 34.7 (30-36) % RDW 13.9 (11.6-14.8) % Plt Count 391 (150-400) X10^3/uL Neut % (Auto) 87.9 H (50-75) % Lymph % (Auto) 7.5 L (25-40) % Nicol[place] % (Auto) 4.2 (3-14) % Eos % (Auto) 0.2 L (2-4) % Baso % (Auto) 0.2 (0-2) % Neut # (Auto) 9100 H (9108-2411) /uL Lymph # (Auto) 800 L (8587-2853) /uL [place] # (Auto) 400 (0-900) /uL Eos # (Auto) 0 (0-450) /uL Baso # (Auto) 0 (0-100) /uL Sodium 135 L (137-145) mmol/L Potassium 3.7 (3.4-5.1) mmol/L Chloride 100 (98-107) mmol/L Carbon Dioxide 23 (22-32) mmol/L BUN 15 (7-17) mg/dL Creatinine 0.77 (0.52-1.04) mg/dL Estimated GFR > 60 (>60) mL/min BUN/Creatinine Ratio 19.5 (6-22) Glucose 118 H (70-99) mg/dL Lactate 1.7 (0.7-2.1) mmol/L Calcium 8.9 (8.4-10.2) mg/dL Total Bilirubin 0.3 (0.2-1.3) mg/dL Conjugated Bilirubin 0.0 (0.0-0.3) md/dL Unconjugated Bilirubin 0.0 (0.0-1.1) mg/dL AST 74 H (14-36) IU/L ALT 16 (<35) IU/L Alkaline Phosphatase 79 (38-126) U/L Total Protein 7.1 (6.3-8.2) g/dL Albumin 4.5 (3.5-5.0) g/dL Globulin 2.6 (1.7-4.1) g/dL Albumin/Globulin Ratio 1.7 (1.0-2.8) Salicylates < 1.0 (<20) mg/dL Acetaminophen < 10 (10-30) ug/mL Ethyl Alcohol 58 H ( - 10) mg/dL MDM Narrative Medical decision making narrative: 49-year-old female presents with a what sounds like an unintentional overdose, patient was transported via EMS as she was quite altered initially but they state she was improved EN route she did not receive any Narcan. Was initially quite agitated with the medics but they state that she improved during transport. Patient did have some vomiting here in the department. She did meet with FOREIGN EXCHANGE STUDENT COORDINATOR. Chest x-ray is negative for acute change. And call x-ray shows joint effusion. Labs normal white count, hemoglobin and platelets. Sodium 135 electrolytes, BUN creatinine, glucose is 118 AST of 74, LFTs are otherwise normal. Salicylate, Tylenol are normal. Etoh 58. Patient received fluids, Zofran, patient was feeling improved. She was alert inappropriate notes depression but no thoughts of harming herself. She did meet with FOREIGN EXCHANGE STUDENT COORDINATOR. She was requesting to return home and ambulating safely in the department. Did discuss if she would be interested in resources for substance abuse she does not wish to go to any inpatient facilities at this time. Patient was discharged prior to my evaluation I never saw or evaluated patient. <Harriet Guerra, DO - Last Filed: 10/30/24 02:11> Lab Data Labs: Lab Results 10/29/24 Range/Units 17:23 WBC 10.4 (4.5-11.0) X10^3/uL RBC 4.01 (4.0-5.2) X10^6/uL Hgb 13.2 (12.0-16.0) g/dL Hct 37.9 (36-46) % MCV 94.5 (80-100) fL MCH 32.8 (26-34) PG MCHC 34.7 (30-36) % RDW 13.9 (11.6-14.8) % Plt Count 391 (150-400) X10^3/uL Neut % (Auto) 87.9 H (50-75) % Lymph % (Auto) 7.5 L (25-40) % Nicollet % (Auto) 4.2 (3-14) % Eos % (Auto) 0.2 L (2-4) % Baso % (Auto) 0.2 (0-2) % Neut # (Auto) 9100 H (4685-5937) /uL Lymph # (Auto) 800 L (7142-3556) /uL Nicol[place] # (Auto) 400 (0-900) /uL Eos # (Auto) 0 (0-450) /uL Baso # (Auto) 0 (0-100) /uL Sodium 135 L (137-145) mmol/L Potassium 3.7 (3.4-5.1) mmol/L Chloride 100 (98-107) mmol/L Carbon Dioxide 23 (22-32) mmol/L BUN 15 (7-17) mg/dL Creatinine 0.77 (0.52-1.04) mg/dL Estimated GFR > 60 (>60) mL/min BUN/Creatinine Ratio 19.5 (6-22) Glucose 118 H (70-99) mg/dL Lactate 1.7 (0.7-2.1) mmol/L Calcium 8.9 (8.4-10.2) mg/dL Total Bilirubin 0.3 (0.2-1.3) mg/dL Conjugated Bilirubin 0.0 (0.0-0.3) md/dL Unconjugated Bilirubin 0.0 (0.0-1.1) mg/dL AST 74 H (14-36) IU/L ALT 16 (<35) IU/L Alkaline Phosphatase 79 (38-126) U/L Total Protein 7.1 (6.3-8.2) g/dL Albumin 4.5 (3.5-5.0) g/dL Globulin 2.6 (1.7-4.1) g/dL Albumin/Globulin Ratio 1.7 (1.0-2.8) Salicylates < 1.0 (<20) mg/dL Acetaminophen < 10 (10-30) ug/mL Ethyl Alcohol 58 H ( - 10) mg/dL MDM Narrative Medical decision making narrative: 49-year-old female presents with a what sounds like an unintentional overdose, patient was transported via EMS as she was quite altered initially but they state she was improved EN route she did not receive any Narcan. Was initially quite agitated with the medics but they state that she improved during transport. Patient did have some vomiting here in the department. She did meet with FOREIGN EXCHANGE STUDENT COORDINATOR. Chest x-ray is negative for acute change. And call x-ray shows joint effusion. Labs normal white count, hemoglobin and platelets. Sodium 135 electrolytes, BUN creatinine, glucose is 118 AST of 74, LFTs are otherwise normal. Salicylate, Tylenol are normal. Etoh 58. Patient received fluids, Zofran, patient was feeling improved. She was alert, oriented notes depression but no thoughts of harming herself. She did meet with FOREIGN EXCHANGE STUDENT COORDINATOR. She was requesting to return home and ambulating safely at apartment. Did discuss if she would be interested in resources for substance abuse she does not wish to go to any inpatient facilities at this time. Patient was discharged prior to my evaluation I never saw or evaluated patient Naloxone at Discharge Meets criteria for naloxone at discharge?: Yes Discharge Plan Departure Patient Disposition: Home Clinical Impression: Overdose Instructions: Naloxone for Opiate Overdose - [facility] Activity Restrictions/Additional Instructions: Follow up for recheck. If you decide that you are interested in inpatient detox or rehab you can call for local beds or return to the ER. Prepack of Narcan is included. Share this medication with any friends or family who spent time with use so they know where it was and how to use it. Please return if you have any other new or concerning changes. Prescriptions: No Action mirtazapine 7.5 mg tablet 7.5 mg PO ONCE PM bupropion HCl 300 mg tablet extended release 24 hr 300 mg PO DAILY trazodone 50 mg tablet 50 mg PO ONCE PM clonidine HCl 0.1 mg tablet 0.1 mg PO DAILY naltrexone 50 mg tablet 50 mg PO DAILY hydrocodone-acetaminophen 5-325 mg tablet 1 tab PO Q6H PRN (Reason: pain) Qty: 10 0RF oxycodone-acetaminophen [Percocet] 5-325 mg tablet 2 tab PO Q4-6H PRN (Reason: pain) Qty: 60 0RF cyclobenzaprine 10 mg tablet 10 mg PO TID PRN (Reason: muscle spasm) Qty: 10 0RF hydrocodone-acetaminophen 5-325 mg tablet 1 tab PO Q6H PRN (Reason: pain) Qty: 10 0RF ondansetron 4 mg tablet,disintegrating 4 mg PO Q6HR PRN (Reason: nausea and vomiting) Qty: 10 0RF Referrals: Shana Vences ARNP [Primary Care Provider] - Stand Alone Forms: Patient Portal/API/Survey
[2024-10-29] MEDS: ONDANSETRON 4 MG ODT SL (17:11)
--- NOTE | 2024-10-29 17:26 | DI.RAD.S_ITS ---
PROCEDURE: XR ANKLE RT MIN 3V INDICATIONS: pain TECHNIQUE: 3 views of the ankle were acquired. COMPARISON: [facility], CR, XR ANKLE RT MIN 3V, 11/06/2023, 16:50. FINDINGS: Bones: No fractures or dislocations. Ankle mortise is normally aligned. No suspicious bony lesions. Soft tissues: Moderate tibiotalar joint effusion. Achilles tendon appears normal. IMPRESSION: No acute bony abnormality. Moderate joint effusion. Internal derangement not excluded. Dictated by: Hakan Saez M.D. on 10/29/2024 at 18:00 Approved by: Hakan Saez M.D. on 10/29/2024 at 18:01
[2024-10-29 17:46] LABS: Lactate (Lactic Acid) 1.7 mmol/L (0.7-2.1)
[2024-10-29 17:47] LABS: Acetaminophen < 10 ug/mL (10-30); Add Manual Diff / Slide Review NO; Alanine Aminotransferase 16 IU/L (<35); Albumin 4.5 g/dL (3.5-5.0); Albumin Globulin Ratio 1.7 (1.0-2.8); Alkaline Phosphatase 79 U/L (38-126); Aspartate Aminotransferase 74 IU/L (14-36); BUN Creatinine Ratio 19.5 (6-22); Basophils Absolute Auto 0 /uL (0-100); Basophils Percent Auto 0.2 % (0-2); Bilirubin Total 0.3 mg/dL (0.2-1.3); Blood Urea Nitrogen 15 mg/dL (7-17); Calcium 8.9 mg/dL (8.4-10.2); Carbon Dioxide 23 mmol/L (22-32); Chloride 100 mmol/L (98-107); Eosinophils Absolute Auto 0 /uL (0-450); Eosinophils Percent Auto 0.2 % (2-4); Estimated Glomerular Filt Rate > 60 mL/min (>60); Ethanol (ETOH) 58 mg/dL; Globulin 2.6 g/dL (1.7-4.1); Glucose 118 mg/dL (70-99); HEMOLYSIS < 15 (0-50); Hematocrit 37.9 % (36-46); Hemoglobin 13.2 g/dL (12.0-16.0); Lymphocytes Absolute Auto 800 /uL (1100-4500); Lymphocytes Percent Auto 7.5 % (25-40); Mean Corpuscular HGB Conc 34.7 % (30-36); Mean Corpuscular Hemoglobin 32.8 PG (26-34); Mean Corpuscular Volume 94.5 fL (80-100); Monocytes Absolute Auto 400 /uL (0-900); Monocytes Percent Auto 4.2 % (3-14); Neutrophils Absolute Auto 9100 /uL (1500-7000); Neutrophils Percent Auto 87.9 % (50-75); Platelet Count 391 X10^3/uL (150-400); Potassium 3.7 mmol/L (3.4-5.1); Red Blood Cell Count 4.01 X10^6/uL (4.0-5.2); Red Cell Distribution Width 13.9 % (11.6-14.8); Salicylate < 1.0 mg/dL (<20); Sodium 135 mmol/L (137-145); Total Protein 7.1 g/dL (6.3-8.2); White Blood Cell Count 10.4 X10^3/uL (4.5-11.0)
[2024-10-29] MEDS: SODIUM CHLORIDE 0.9% 1,000 ML 1000 ML IV (17:50)
[2024-10-29] MEDS: NALOXONE 4 MG NASAL SPRAY MISC (18:33)
--- NOTE | 2024-10-29 19:11 | CM.SWNOTE ---
ED ASSISTANT DIRECTOR OF ADMISSIONS Assessment Note: ASSISTANT DIRECTOR OF ADMISSIONS - Utilization Review Specialist Assessment ASSISTANT DIRECTOR OF ADMISSIONS/Utilization Review Specialist Assessment Time Spent with Patient Start date 10/29/24 Visit Start Time 17:00 End date 10/29/24 Visit End Time 17:30 Total time Care Management spent on 30 minutes total. patient visit-in minutes Mental Health Screening Include Onset, Duration, Intensity Presenting Problem Patient presented to the ED via ambulance for overdose. It is reported by EMS that pt took fentanyl and methamphetamines. Precipitating Event(s) Patient states she has been feeling depressed and stressed because she is on the verge of losing her housing in [place]. Patient states she lives in an apartment alone and is not currently working. Patient states she is supposed to be submitting paperwork for disability but has not been able to complete it. Patient Strengths Patient is communicative and somewhat open to intervention at this time. Current Behavioral Health Provider(s) None reported. Include Facility, Provider, Ph. # Psych. Hx Mental Health and Chemical None reported. Dependency Family Hx of Behavioral Abuse None reported during assessment. Psychiatric Hospitalizations (date(s)/ None reported during location) assessment. Psychosocial information & Support Patient is a 49yo female, Systems resident of [facility]. Patient states she has a boyfriend named Levon who lives in [place], [place]. School/Work Patient is currently unemployed. Legal Concerns Legal Matters - Outstanding Issues None reported. Mental Status Orientation (Person/Place/Time) AOx3 Stated Mood embarrassed Affect (Congruent with Mood?) Flat, tearful, congruent with mood Thought Content - Specify/Describe Visual: I see my friend who Obsessions, Delusions, Hallucinations went missing Patient would not elaborate more. Thought Processes (Ttdcpqy-Skqwovno-Rwwl Disorganized, incoherent at Jhdkeysr-Xaubzzjj-Yfkthmbkbx- times Ypfhmvtaksviko-Dfwmzen-Dactteweqihp- Thought Blocking) Speech (Kbrrum-Heht-Ghcrtvf-Rapid-Soft- Slow, soft Loud-Pressured) Motor (Ixstji-Ronyehzjr-Ptdn-Other) Slow, eyes closed most of the assessment Insight (Totj-Bpci-Cbqv/Limited) Fair Judgement (Drpk-Utue-Yybv/Limited) Good Impulse Control (Adequate-Impaired) Impaired Memory (Gevwvqwmj-Pffhlk-Vkgkpi, Intact Impaired-Intact) Concentration (Intact-Impaired) Intact Attention (Intact-Impaired) Intact Behavior (Appropriate-Inappropriate) Appropriate Risk Assessment Suicidal Ideation (Plan) Yes Homicidal Ideation (Plan) No Comment [place]-SUICIDE SEVERITY RATING SCALE 1) Have you wished you were or wished you could go to sleep and not wake up? YES 2) Have you actually had any thoughts of killing yourself? NO 3) Have you been thinking about how you might do this? NO 4) Have you had these thoughts and had some intention of acting on them? NO 5) Have you started to work out or worked out the details of how to kill yourself? Do you intend to carry out this plan? NO 6) Have you ever done anything, started to do anything, or prepared to do anything to end your life? NO If YES, ask: Was this within the past three months? NO Intervention Intervention Reviewed chart and discussed with ED Provider pt's medical status and discharge needs. ED ASSISTANT DIRECTOR OF ADMISSIONS meets with patient. Patient endorses overdosing on medications, having a lot of stressors in life regarding housing instability. Patient states she has some passive SI but no plan or intent. ED ASSISTANT DIRECTOR OF ADMISSIONS and patient discuss goals of care. Patient explains they do not feel inpatient treatment or detox/ crisis stabilization is necessary at this time. Patient agreeable to [facility] referral and follow up call tomorrow. Pt explained her boyfriend is in [place] but her friend can be contacted to be a source of support overnight. ED ASSISTANT DIRECTOR OF ADMISSIONS called pt friend, Brian Bronson (ph# ) and updated on pt status , per pt consent. ED ASSISTANT DIRECTOR OF ADMISSIONS relayed pt request of friend to be available at pt apartment. At this time, it is the opinion of this ASSISTANT DIRECTOR OF ADMISSIONS that patient would benefit from inpatient psychiatric hospitalization for stabilization or detox; pt would also benefit from close outpatient follow up. ASSISTANT DIRECTOR OF ADMISSIONS informs ED provider, Dr. Lopes, who indicates agreement. ASSISTANT DIRECTOR OF ADMISSIONS informs MERCEDES Davila. Plan RA Plan Pt to discharge home via cab and will have friend waiting to assist her at home. [facility] Crisis Line will follow up with patient tomorrow, 10/30 at mid morning. Patient provided with crisis and [facility] contact information. Lesia Ramos ELECTRONIC TRAIN CONTROL TECHNICIAN
--- NOTE | 2024-10-30 15:01 | CM.SWNOTE ---
ED CAKE ICER Follow Up Note: ED CAKE ICER called [facility] Crisis Line and requested a follow up call for [facility] services; provided pt information per her consent. Follow up scheduled for this evening or next morning, 10/31. BENNY Dodd
== END 2024-10-29 18:51 | disposition home or self-care (01) ==
PROVIDERS: Emergency Provider Emergency Medicine; PCP Nurse Practitioner Family
DX: T40.411A Poisoning by fentanyl or fentanyl analogs, accidental (unintentional), initial encounter (principal)
CPT/HCPCS: 36415; 71045; 73610; 80048; 80076; 80320; 80329; 83605; 85025; 96360; 99284; A9270; G0480

== ENCOUNTER 2024-12-22 00:30 | Emergency (ER) | payer OTHER, SELFPAY ==
[2024-12-22 00:42] VITALS: BP 144/81; PULSE 102; RESP 16; TEMP 36.6; O2SAT 98; BMI 23.9
--- NOTE | 2024-12-22 00:45 | DI.RAD.S_ITS ---
PROCEDURE: XR ANKLE RT MIN 3V INDICATIONS: twisted ankle with swelling and bruising TECHNIQUE: 3 views of the ankle were acquired. COMPARISON: [facility], CR, XR ANKLE RT MIN 3V, 10/29/2024, 17:27. FINDINGS: Bones: Minimally displaced distal fibular fracture. Partially visualized 1st digit fusion hardware. Soft tissues: Ankle effusion. Achilles tendon appears normal. IMPRESSION: Minimally displaced distal fibular fracture. Dictated by: Ammy Michaels M.D. on 12/22/2024 at 1:13 Approved by: Ammy Michaels M.D. on 12/22/2024 at 1:13
[2024-12-22] MEDS: IBUPROFEN 400 MG TABLET 800 MG PO (00:52)
--- NOTE | 2024-12-22 00:52 | PC.NURSE ---
Imaging at bedside
--- NOTE | 2024-12-22 01:03 | ED.LOWEXIN ---
HPI - Extremity Injury (Lower) General Chief Complaint: Extremity Injury, Lower Stated Complaint: twisted rt ankle Time Seen by Provider: 12/22/24 00:41 Source: patient Mode of arrival: Ambulatory History of Present Illness HPI Narrative: Patient is a 49-year-old female no pertinent past medical history comes into the ED from home for evaluation of ankle pain, states that 2 nights ago she was walking down stairs and rolled it, states that she has been having increased pain swelling and bruising noted, states that she had to use a walking boot and crutches due to persistent pain. She denies any other injuries not on any blood thinners denies head strike or any other symptoms at this time. Related Data Home Medications ?Medication ?Instructions ?Recorded ?Confirmed bupropion HCl 300 mg 24 hr tablet, 300 mg PO DAILY 11/06/23 11/06/23 extended release clonidine HCl 0.1 mg tablet 0.1 mg PO DAILY 11/06/23 11/06/23 mirtazapine 7.5 mg tablet 7.5 mg PO ONCE PM 11/06/23 11/06/23 naltrexone 50 mg tablet 50 mg PO DAILY 11/06/23 11/06/23 trazodone 50 mg tablet 50 mg PO ONCE PM 11/06/23 11/06/23 Previous Rx's ?Medication ?Instructions ?Recorded oxycodone-acetaminophen 5 mg-325 2 tab PO Q4-6H PRN pain #60 tabs // mg tablet (Percocet) cyclobenzaprine 10 mg tablet 10 mg PO TID PRN muscle spasm #10 10/18/22 tabs hydrocodone 5 mg-acetaminophen 325 1 tab PO Q6H PRN pain #10 tabs 10/18/22 mg tablet ondansetron 4 mg disintegrating 4 mg PO Q6HR PRN nausea and 10/18/22 tablet vomiting #10 tabs hydrocodone 5 mg-acetaminophen 325 1 tab PO Q6H PRN pain #10 tabs 11/06/23 mg tablet oxycodone-acetaminophen 5 mg-325 1 tab PO Q8H PRN pain 3 days #9 12/22/24 mg tablet (Percocet) tabs Allergies Allergy/AdvReac Type Severity Reaction Status Date / Time No Known Drug Allergies Allergy Verified 12/22/24 00:42 Review of Systems Review of Systems Narrative: General: Denies fever, chills, weight loss HEENT: Denies headache, eye drainage, eye irritation, head trauma, sore throat, voice change Cardiovascular: Denies any chest pain, palpitations, tachycardia Respiratory: Denies any shortness of breath, cough, wheeze, stridor GI/: Denies any abdominal pain, nausea, vomiting, diarrhea, bright red blood per rectum, melanotic stools, urinary frequency, urinary retention, dysuria, hematuria MSK: Positive right ankle pain Skin: Denies any rashes, lesions, discoloration Neuro: Denies any headache, lightheadedness, dizziness, fainting, weakness Psych: Denies SI/HI Patient History Medical History HX: benign breast biopsy Depression No significant medical problems Surgical History Previous section S/P cholecystectomy Social History household members: friend(s) tobacco type: vaping alcohol intake frequency: a few times a week Exam Narrative Exam Narrative: General: Cooperative, well-developed, not in acute distress HEENT: Normocephalic, atraumatic, PERRLA, normal sclera, eyelids normal Neck: Active full range of motion, atraumatic Chest: Normal to inspection, negative crepitus, no overlying erythema ecchymosis Respiratory: Normal respiratory effort, not in acute respiratory distress, clear to auscultation bilaterally negative cough, wheeze, tachypnea, rhonchi, rales Cardiology: Regular rate rhythm negative gallop, murmur, rubs GI/: No tenderness to palpation, soft, non rigid, normal to inspection, exam deferred MSK: Bilateral lower extremities are neurovascularly intact, of the right foot has multiple healed scars consistent with previous surgeries, patient with tenderness to palpation ecchymosis edema noted to the lateral malleoli, no gross deformity noted otherwise Skin: No rashes or lesions noted Neuro: Alert awake oriented x3, moves all 4 extremities spontaneously, cranial nerves intact, able to answer all questions appropriately follows commands appropriately Psych: Cooperative, negative suicidal or homicidal ideations Initial Vital Signs Initial Vital Signs: Vital Signs Temperature 98 F 12/22/24 00:42 Pulse Rate 102 H 12/22/24 00:42 Respiratory Rate 16 12/22/24 00:42 Blood Pressure 144/81 H 12/22/24 00:42 Pulse Oximetry 98 12/22/24 00:42 Oxygen Delivery Method Room Air 12/22/24 00:42 Procedures Orthopedic Splinting/Casting Injury #1: Time of procedure: 01:27 Side: right Lower Extremity Injury Location: ankle Lower Extremity Immobilizer: posterior splint and stirrup splint Other Orthopedic Equipment: crutches Post splinting neuro exam: intact Post splinting vascular exam: intact Placed by: Nursing Course Orders Ordered: ED Orders 12/22/24 00:45 XR ankle RT min 3V Stat Discontinued Medications Ibuprofen (Ibuprofen 400 Mg Tablet) 800 mg PO NOW ONE Stop: 12/22/24 00:47 Last Admin: 12/22/24 00:52 Dose: 800 mg Documented By: ENEDELIA Oxycodone/Acetaminophen (Oxycodone/Acetaminophen 5/325 Tablet) 1 tab PO NOW ONE Stop: 12/22/24 01:22 Last Admin: 12/22/24 01:31 Dose: 1 tab Oxycodone/Acetaminophen (Oxycodone/Apap 5/325 Prepack) 1 bottle MISC DIRECTED ONE Stop: 12/22/24 01:22 Last Admin: 12/22/24 01:31 Dose: 1 bottle Vital Signs Vital signs: Vital Signs - 8 hr 12/22/24 00:42 12/22/24 01:54 Temperature 98 F Pulse Rate 102 H 88 Respiratory Rate 16 22 Blood Pressure 144/81 H 139/86 Pulse Oximetry 98 99 Oxygen Delivery Method Room Air Room Air MDM - Extremity Injury (Lower) Differential Diagnosis Differential diagnosis: Likely ankle sprain and strain, ankle fracture and other (Contusion) Imaging Data Extremity x-ray #1: Radiologist's Impression: [address] [address] XRay Report Signed Patient: Myrtle Stevenson MR#: [id number] : 1975 Acct:[id number] Age/Sex: 49 / F Date of Service: 12/22/24 Loc: ED Accession Number: [id number] Procedure: XR ankle RT min 3V Ordering Provider: Baluyot,Justice D.O. PROCEDURE: XR ANKLE RT MIN 3V INDICATIONS: twisted ankle with swelling and bruising TECHNIQUE: 3 views of the ankle were acquired. COMPARISON: [facility], CR, XR ANKLE RT MIN 3V, 10/29/2024, 17:27. FINDINGS: Bones: Minimally displaced distal fibular fracture. Partially visualized 1st digit fusion hardware. Soft tissues: Ankle effusion. Achilles tendon appears normal. IMPRESSION: Minimally displaced distal fibular fracture. MDM Narrative Medical decision making narrative: 49-year-old female without any pertinent past medical history presents to the emergency department from home for evaluation of right ankle pain, states that she twisted her ankle proximally 2 days ago, does have a history of multiple surgeries to that foot due to bunion surgery, states that she has had persistent/worsening pain to that area therefore decided come into the ED for further evaluation treatment. She states that she has been using a ortho boot and crutches that she had from her previous surgery, on exam neurovascularly intact but tender to palpation to the lateral malleoli, x-ray consistent with a distal fibular fracture, patient will be placed in a short posterior splint and stirrup splint for stabilization, informed to be nonweightbearing, informed to follow up with Orthopedic surgery strict return precautions given verbalized understanding of this and agrees to being discharged home with outpatient follow up Discharge Plan Departure Patient Disposition: Home Clinical Impression: Fracture of distal end of fibula Instructions: DI for Ankle Fracture, How to Take Care of Your Splint Activity Restrictions/Additional Instructions: Please be nonweightbearing on that right foot, follow up with Orthopedic surgery for further evaluation treatment of your fracture Please read the discharge instructions sheet carefully and bring all papers to all doctor follow-up visits, as it may contain information that your doctor may want to see. Disease processes change and evolve, if your symptoms worsen or if you develop any new symptoms that are concerning to you please return for evaluation. Your evaluation today does not show any evidence of any life-threatening/serious illnesses requiring admission to the hospital or surgery. Please follow-up with your doctor for re-evaluation in approximately 1 day. Seek immediate medical attention for any worrisome symptoms. *If you do not have a primary care provider please contact the [facility] Resource line at [phone]. They will ask some questions about your medical history and help get you set up with a doctor in the community. Prescriptions: New oxycodone-acetaminophen [Percocet] 5-325 mg tablet 1 tab PO Q8H PRN (Reason: pain) 3 Days Qty: 9 0RF No Action mirtazapine 7.5 mg tablet 7.5 mg PO ONCE PM bupropion HCl 300 mg tablet extended release 24 hr 300 mg PO DAILY trazodone 50 mg tablet 50 mg PO ONCE PM clonidine HCl 0.1 mg tablet 0.1 mg PO DAILY naltrexone 50 mg tablet 50 mg PO DAILY hydrocodone-acetaminophen 5-325 mg tablet 1 tab PO Q6H PRN (Reason: pain) Qty: 10 0RF oxycodone-acetaminophen [Percocet] 5-325 mg tablet 2 tab PO Q4-6H PRN (Reason: pain) Qty: 60 0RF cyclobenzaprine 10 mg tablet 10 mg PO TID PRN (Reason: muscle spasm) Qty: 10 0RF hydrocodone-acetaminophen 5-325 mg tablet 1 tab PO Q6H PRN (Reason: pain) Qty: 10 0RF ondansetron 4 mg tablet,disintegrating 4 mg PO Q6HR PRN (Reason: nausea and vomiting) Qty: 10 0RF Referrals: Shana Vences ARNP [Primary Care Provider, Medical] Tyler Burton MD [Physician, Orthopedic Surgery] Referral Note: Distal fibular fracture Stand Alone Forms: Patient Portal/API
[2024-12-22] MEDS: OXYCODONE/APAP 5/325 PREPACK 1 BOTTLE MISC (01:31)
[2024-12-22] MEDS: OXYCODONE/ACETAMINOPHEN 5/325 TABLET 1 TAB PO (01:31)
[2024-12-22 01:54] VITALS: BP 139/86; PULSE 88; RESP 22; O2SAT 99
== END 2024-12-22 01:56 | disposition home or self-care (01) ==
PROVIDERS: Emergency Provider Student in an Organized Health Care Education/Training Program; PCP Nurse Practitioner Family
DX: S82.831A Other fracture of upper and lower end of right fibula, initial encounter for closed fracture (principal); X50.1XXA Overexertion from prolonged static or awkward postures, initial encounter
CPT/HCPCS: 29515; 73610; 99283

== ENCOUNTER 2025-02-21 17:03 | Emergency (ER) | payer OTHER, SELFPAY ==
[2025-02-21 17:11] VITALS: BP 147/91; PULSE 97; RESP 17; TEMP 36.6; O2SAT 98; BMI 23.9
== END 2025-02-21 17:31 | disposition left against medical advice (07) ==
PROVIDERS: Emergency Provider Emergency Medicine
CPT/HCPCS: 99281

== ENCOUNTER 2025-02-22 03:50 | Emergency (ER) | payer OTHER, SELFPAY ==
[2025-02-22 04:22] VITALS: BP 165/91; PULSE 103; RESP 18; TEMP 36.6; O2SAT 96; BMI 23.9
== END 2025-02-22 05:05 | disposition left against medical advice (07) ==
CPT/HCPCS: 99281

== ENCOUNTER 2025-03-06 17:48 | Emergency (ER) | payer OTHER, SELFPAY ==
[2025-03-06] VITALS (8 sets, daily range): BP systolic 128–175; BP diastolic 78–108; PULSE 81–94; RESP 17–21; TEMP 37; O2SAT 95–98; BMI 23.9
--- NOTE | 2025-03-06 18:18 | DI.RAD.S_ITS ---
PROCEDURE: XR KNEE RT 3V INDICATIONS: Fall, R knee injury, swelling, Px TECHNIQUE: 3 views of the knee were acquired. COMPARISON: None. FINDINGS: Bones: No fractures or dislocations. No suspicious bony lesions. Soft tissues: No joint effusion. No suspicious soft tissue calcifications. IMPRESSION: No acute bony abnormality or significant effusion. Dictated by: Hakan Saez M.D. on 03/06/2025 at 18:49 Approved by: Hakan Saez M.D. on 03/06/2025 at 18:49
[2025-03-06 18:33] LABS: Add Manual Diff / Slide Review NO; Hematocrit 39.5 % (36-46); Hemoglobin 13.6 g/dL (12.0-16.0); Lymphocytes Absolute Auto 1800 /uL (1100-4500); Mean Corpuscular HGB Conc 34.4 % (30-36); Mean Corpuscular Hemoglobin 32.6 PG (26-34); Mean Corpuscular Volume 94.9 fL (80-100); Platelet Count 446 X10^3/uL (150-400)
[2025-03-06 18:48] LABS: Acetaminophen < 10 ug/mL (10-30); Alanine Aminotransferase 8 IU/L (<35); Albumin 4.6 g/dL (3.5-5.0); Albumin Globulin Ratio 1.5 (1.0-2.8); Alkaline Phosphatase 70 U/L (38-126); Blood Urea Nitrogen 12 mg/dL (7-17); Calcium 8.7 mg/dL (8.4-10.2); Carbon Dioxide 24 mmol/L (22-32); Chloride 102 mmol/L (98-107); Estimated Glomerular Filt Rate > 60 mL/min (>60); Ethanol (ETOH) 200 mg/dL (<10); Globulin 3.0 g/dL (1.7-4.1); Glucose 113 mg/dL (70-99); HEMOLYSIS < 15 (0-50); Potassium 3.9 mmol/L (3.4-5.1); Salicylate < 1.0 mg/dL (<20); Sodium 139 mmol/L (137-145); Total Protein 7.6 g/dL (6.3-8.2)
[2025-03-06] MEDS: ONDANSETRON 4 MG/2 ML INJ IV (18:49)
--- NOTE | 2025-03-06 18:58 | CM.SWNOTE ---
ED JOB SETTER Assessment Note Patient is 49 y/o female who presents to ED via POV with friend. Patient presents to the ED due to concern for withdrawal symptoms from ETOH, Fentanyl, and Methamphetamine. Patient endorses that she fell last night and is concerned she injured herself, patient has hx of leg fracture from December. Patient presents as calm, cooperative, communicative, A/O4, coherent, distracted by pain and withdrawal symptoms and anxious. Patient endorses she is overwhelmed. Patient states she is hurting everywhere and endorses that she worked so hard to stay out of trouble. Patient endorses concern that she is going to be evicted on 03/16/25 and she needs to identify where she is moving her belongings to. Patient states she has friend's houses she could stay at but she states that she is not sure how she will store belongings. Patient states that her boyfriend broke up with her recently. Patient states she is not interested in detox or [facility] rehab at this time. Patient endorses her last drink was a few hours ago and she typically drinks a 1/5 of vodka a day. It is reported that she last used Methamphetamine and Fentynal 3 days ago. Patient presents with nausea, vomiting, abdominal pain and pain throughout her body. Patient endorses passive SI, with thoughts of plan to overdose, patient has hx of overdose in October 2024. Patient contracts for safety and denies current SI or intent. Patient denies HI. Patient endorses that she relapsed in recent months and went to [place] two weeks ago and the psychiatrist in [place] prescribed her effexor but she was unable to refill it. Patient states that she went to [facility] for 6 months and prior to that she went to [facility] for [facility] rehab in [place], [place]. Patient has hx of [facility] follow up from October 2024, but states that she does not recall. Patient agrees to f/u phone call. JOB SETTER recommends that patient reach out to [facility] tomorrow, patient endorses hx of utilizing their services a few years ago. JOB SETTER discusses [facility], [facility] crisis, basic and housing resources with patient and provides them to patient. Patient denies further needs from JOB SETTER at this time and endorses preference to address her withdrawal symptoms at this time. JOB SETTER contacts [facility] provider line and leaves VM regarding patient referral for follow up call. Plan: ED provider to evaluate and treat patient further, patient to f/u with resources provided, [facility] to f/u with patient. Patient likely to d/c to home upon medical clearance. Ryann Alexis, TACK WELDER
[2025-03-06 19:30] LABS: TSH w/ Reflex to FT4 0.41 uIU/mL (0.47-4.68)
--- NOTE | 2025-03-06 19:45 | ED.ALCOHOL ---
HPI - Alcohol General Chief Complaint: Toxicology Problem Stated Complaint: withdrawal from alcohol, meth, fentanyl Time Seen by Provider: 03/06/25 18:30 Source: patient Mode of arrival: Family Vehicle History of Present Illness HPI narrative: 49-year-old female patient with a history of polysubstance abuse including alcohol, fentanyl, and methamphetamine with chronic pain issues. She complains of withdrawal symptoms including abdominal pain, nausea is and fatigue. Her last alcohol was a few hours ago. Her last methamphetamine and fentanyl were 2 days ago. Related Data Home Medications ?Medication ?Instructions ?Recorded ?Confirmed No Known Home Medications 02/27/25 02/27/25 Allergies Allergy/AdvReac Type Severity Reaction Status Date / Time No Known Drug Allergies Allergy Verified 03/06/25 17:57 Review of Systems Review of Systems ROS Unobtainable: All systems reviewed & are unremarkable except as noted in HPI and below Gastrointestinal Gastrointestinal: Reports as per HPI Psychiatric Psychiatric: Reports as per HPI Patient History Medical History HX: benign breast biopsy Depression No significant medical problems Surgical History Previous section S/P cholecystectomy Social History household members: friend(s) tobacco type: vaping alcohol intake frequency: a few times a week Alcohol type: hard liquor Exam Narrative Exam Narrative: General: Alert and conversant. No distress. Appears well nourished and well hydrated Craniofacial: No evidence of trauma. Nontender and no swelling. Eyes: PERRLA EOMI conjunctiva clear Lungs: Clear to auscultation with good air movement. No wheezing, rales or rhonchi. No respiratory distress Cardiac: Regular rate and rhythm with no appreciable murmur or gallop Abdomen: Soft, nontender with no distention or masses. Normal bowel sounds. No rebound or guarding Musculoskeletal: Exam of the extremities, axial spine and ribcage reveals no deformity, bony tenderness or swelling. Range of motion intact Neuro: Alert and oriented. Cranial nerves, motor, sensory and cerebellar all grossly intact. No focal deficit Skin: Warm and normal color. No rashes Psychological: Normal affect and interaction. No evidence of delusion or psychosis. Normal mood. Initial Vital Signs Initial Vital Signs: Vital Signs Temperature 98.6 F 03/06/25 17:52 Pulse Rate 94 H 03/06/25 17:52 Respiratory Rate 20 03/06/25 17:52 Blood Pressure 128/82 03/06/25 17:52 Pulse Oximetry 98 03/06/25 17:52 Oxygen Delivery Method Room Air 03/06/25 17:52 Course Course Course Narrative: 21:00 Improved with buprenorphine and ondansetron. Orders Ordered: ED Orders 03/06/25 18:18 Consult to [employer]ER - [employer] Routine XR knee RT 3V Stat 03/06/25 18:24 Acetaminophen Stat Complete Blood Count AUTO DIFF Stat Comprehensive Metabolic Panel Stat Ethanol (ETOH) Stat Free T4, Direct Thyroxine Stat Salicylate Stat TSH w/ Reflex to FT4 Stat 03/06/25 19:38 Urine Drug Screen, Rapid Stat Discontinued Medications Buprenorphine/Naloxone (Buprenorphine/Naloxone 8mg/2mg 1 Tab) 1 tab SL DAILY ONE Stop: 03/06/25 19:55 Last Admin: 03/06/25 20:02 Dose: 1 tab Documented By: WERNER Sodium Chloride (Normal Saline 0.9%) 1,000 mls @ 1,000 mls/hr IV BOLUS ONE Stop: 03/06/25 20:52 Last Infusion: 03/06/25 21:16 Dose: Infused Documented By: Admin: 03/06/25 20:02 Dose: 1,000 mls/hr Documented By: WERNER Naloxone HCl (Naloxone 4 Mg Nasal [place]) 4 mg MISC DIRECTED ONE Stop: 03/06/25 21:11 Last Admin: 03/06/25 21:17 Dose: 4 mg Documented By: YVONNE Ondansetron HCl (Ondansetron 4 Mg/2 Ml Inj) 4 mg IV NOW ONE Stop: 03/06/25 18:31 Last Admin: 03/06/25 18:49 Dose: 4 mg Documented By: YVONNE Ondansetron HCl (Ondansetron 4 Mg Odt Prepack) 1 bottle MISC DIRECTED ONE Stop: 03/06/25 21:08 Last Admin: 03/06/25 21:17 Dose: 1 bottle Documented By: YVONNE Vital Signs Vital signs: Vital Signs - 8 hr 03/06/25 17:52 03/06/25 18:15 03/06/25 18:24 Temperature 98.6 F Pulse Rate 94 H 93 H 89 Respiratory Rate 20 18 21 Blood Pressure 128/82 Pulse Oximetry 98 97 Oxygen Delivery Method Room Air 03/06/25 18:24 03/06/25 18:30 03/06/25 18:30 Temperature Pulse Rate 85 Respiratory Rate 17 Blood Pressure 153/81 H 150/84 H Pulse Oximetry 96 Oxygen Delivery Method 03/06/25 18:57 03/06/25 18:57 03/06/25 19:00 Temperature Pulse Rate 81 87 Respiratory Rate 20 Blood Pressure 130/78 Pulse Oximetry 98 97 Oxygen Delivery Method Room Air Room Air 03/06/25 19:00 03/06/25 21:16 03/06/25 21:17 Temperature Pulse Rate 86 92 H Respiratory Rate 20 Blood Pressure 137/81 175/108 H 166/96 H Pulse Oximetry 95 96 Oxygen Delivery Method Room Air MDM - Alcohol Lab Data Attestation: I reviewed the patient's lab results. 03/06/25 18:24 03/06/25 18:24 Labs: Lab Results 03/06/25 03/06/25 Range/Units 18:24 19:38 WBC 11.3 H (4.5-11.0) X10^3/uL RBC 4.16 (4.0-5.2) X10^6/uL Hgb 13.6 (12.0-16.0) g/dL Hct 39.5 (36-46) % MCV 94.9 (80-100) fL MCH 32.6 (26-34) PG MCHC 34.4 (30-36) % RDW 13.1 (11.6-14.8) % Plt Count 446 H (150-400) X10^3/uL Neut % (Auto) 78.8 H (50-75) % Lymph % (Auto) 16.4 L (25-40) % [place] % (Auto) 4.1 (3-14) % Eos % (Auto) 0.1 L (2-4) % Baso % (Auto) 0.6 (0-2) % Neut # (Auto) 8900 H (2953-7094) /uL Lymph # (Auto) 1800 (0809-6634) /uL [place]ane # (Auto) 500 (0-900) /uL Eos # (Auto) 0 (0-450) /uL Baso # (Auto) 100 (0-100) /uL Sodium 139 (137-145) mmol/L Potassium 3.9 (3.4-5.1) mmol/L Chloride 102 (98-107) mmol/L Carbon Dioxide 24 (22-32) mmol/L BUN 12 (7-17) mg/dL Creatinine 0.60 (0.52-1.04) mg/dL Estimated GFR > 60 (>60) mL/min BUN/Creatinine Ratio 20.0 (6-22) Glucose 113 H (70-99) mg/dL Calcium 8.7 (8.4-10.2) mg/dL Total Bilirubin 0.2 (0.2-1.3) mg/dL AST 31 (14-36) IU/L ALT 8 (<35) IU/L Alkaline Phosphatase 70 (38-126) U/L Total Protein 7.6 (6.3-8.2) g/dL Albumin 4.6 (3.5-5.0) g/dL Globulin 3.0 (1.7-4.1) g/dL Albumin/Globulin Ratio 1.5 (1.0-2.8) TSH 0.41 L (0.47-4.68) uIU/mL Free T4 0.72 L (0.78-2.19) ng/dL Salicylates < 1.0 (<20) mg/dL U Opiates 300ng/mL cut Negative (Negative) Ur Oxycodone Screen Negative (Negative) Urine Methadone Screen Negative (Negative) Acetaminophen < 10 (10-30) ug/mL Ur Barbiturates Screen Negative (Negative) U Tricyclic Antidepress Negative (Negative) Ur Phencyclidine Scrn Negative (Negative) Ur Amphetamines Screen Negative (Negative) U Methamphetamines Scrn Negative (Negative) Ur MDMA Scrn (Ecstasy) Negative (Negative) U Benzodiazepines Scrn Negative (Negative) Urine Cocaine Screen Negative (Negative) U Marijuana (THC) Screen Negative (Negative) Urine pH Normal (Normal) Urine Specific [place] Normal (Normal) Ethyl Alcohol 200 H (<10) mg/dL Ur Creatinine Normal (Normal) Point of Care Testing Test Results Negative Urine Dip Bedside Urine Glucose Negative Bedside Urine Bilirubin - Negative Bedside Urine Ketone - Negative Urine Specific [place] 1.005 Bedside Urine Occult Blood - Negative Bedside Urine pH 8.5 Bedside Urine Protein +/- 15 Bedside Urine Urobilinogen - Negative Bedside Urine Nitrite - Negative Bedside Urine Leukocytes - Negative Esterase MDM Narrative Medical decision making narrative: Presents with mild opiate withdrawal with physical exam vital signs reassuring. Lab work reassuring. Improved with buprenorphine. She will follow up with primary care. This appears to be a mild opiate withdrawal. She was also given Narcan take-home pack. Discharge Plan Departure Patient Disposition: Home Clinical Impression: Opiate withdrawal, Polysubstance abuse Instructions: Opioid Use Disorder, DI for Substance Use Disorder Activity Restrictions/Additional Instructions: Hydration, rest and supportive care. Contact your provider for follow-up and help for polysubstance abuse and opiate issues. Return to the ER if worse. Prescriptions: No Action No Known Home Medications Referrals: Miscellaneous,DoctorMD [Primary Care Provider, Medical] Stand Alone Forms: Patient Portal/API
[2025-03-06 19:54] LABS: UR Morphine/Opiate cutoff 300 Negative (Negative); Ur Specific Gravity Normal (Normal); Urine MDMA Negative (Negative); Urine Methamphetamines Negative (Negative); Urine Tetrahydrocannabinol Negative (Negative); Urine Tricyclic Antidepressant Negative (Negative)
[2025-03-06] MEDS: BUPRENORPHINE/NALOXONE 8MG/2MG 1 TAB SL (20:02)
[2025-03-06] MEDS: SODIUM CHLORIDE 0.9% 1,000 ML 1000 ML IV (20:02)
[2025-03-06 20:08] LABS: Free T4, Direct Thyroxine 0.72 ng/dL (0.78-2.19)
[2025-03-06] MEDS: ONDANSETRON 4 MG ODT PREPACK 1 BOTTLE MISC (21:17)
[2025-03-06] MEDS: NALOXONE 4 MG NASAL SPRAY MISC (21:17)
== END 2025-03-06 21:33 | disposition home or self-care (01) ==
PROVIDERS: Emergency Provider Emergency Medicine
DX: F11.23 Opioid dependence with withdrawal (principal); F19.10 Other psychoactive substance abuse, uncomplicated; F10.10 Alcohol abuse, uncomplicated; Y90.7 Blood alcohol level of 200-239 mg/100 ml; R10.9 Unspecified abdominal pain; R11.0 Nausea; R53.83 Other fatigue
CPT/HCPCS: 73562; 80053; 80305; 80320; 80329; 81003; 81025; 84439; 84443; 85025; 96361; 96374; 99284; A9270; G0480; J2405